=== PATIENT | male | born 1990 | race Caucasian/White ===

== ENCOUNTER 2016-08-12 07:10 | Emergency (ER) | payer OTHER ==
[~2016-08-12] VITALS: Wt 100.0 kg
[2016-08-12] MEDS ORDERED: LIDOCAINE/MYLANTA 40 ML BTL PO ONE (07:30)
[2016-08-12] MEDS ORDERED: FAMOTIDINE 20 MG TAB PO ONE (07:30)
[2016-08-12] MEDS ORDERED: ACETAMINOPHEN 500 MG TAB PO STA (07:30)
[2016-08-12] MEDS ORDERED: SOD CHLORIDE 0.9% 1,000 ML IV STA (07:32)
--- NOTE | 2016-08-12 08:06 | RADRPT ---
PROCEDURE: US Abdomen (right upper quadrant). CLINICAL INDICATION: Right upper quadrant pain TECHNIQUE: Multiple real-time longitudinal and transverse images of the right upper quadrant of th e abdomen were acquired utilizing a curved array transducer. Images were reviewed on a high-resoluti on PACS workstation. COMPARISON: None FINDINGS: The liver is normal in size and echotexture without focal mass or intrahepatic biliary dilatation. There is normal hepatopedal flow within the main portal vein. The gallbladder is well displayed wit hout filling defects or wall thickening. The common bile duct measures 5.7 mm in maximal dimension. The pancreas is not well visualized due to overlying bowel gas and body habitus. No free fluid is identified. The right kidney measures 10.3 cm in length. There is normal echogenicity within the right kidney. There is no perinephric fluid collection. No hydronephrosis, mass, or calculus is seen. IMPRESSION: 1. Unremarkable right upper quadrant ultrasound. RPTAT: [facility] Physician Madhu Date Time Electronically viewed and signed by Physician Madhu on 08/12/2016 08:06 /
--- NOTE | 2016-08-12 08:15 | ERD ---
ER Documentation Chief Complaint Date/Time DATE: 08/12/16 Chief Complaint Epigastric pain, acid reflux HPI The patient is a 26-year-old male who presents to the emergency department with complaint of epigastric abdominal pain and acid reflux. The patient reports that his symptoms began yesterday, after eating a large, heavy, spicy meal. His pain is localized to the epigastric region of his abdomen, and is described as aching and burning in nature, with associated acid reflex extending towards his esophagus. He notes that he often experiences these symptoms after eating similarly spicy meals, though has not thought to change his diet. He denies any associated nausea, vomiting, diarrhea, black/bloody stools, hematuria, dysuria, flank pain. Denies fevers, sweats, chills. Denies testicular pain, testicular swelling or urethral discharge. He rates his current pain as 7/10, but has not yet taken any medication for pain relief. Denies any radiation of pain. No other complaints at this time. ROS All systems reviewed and are negative except as per history of present illness. Medications Home Meds Active Scripts Acetaminophen* (Tylophen*) 500 Mg Capsule, 1 CAP PO Q6H Y for PAIN AND OR ELEVATED TEMP, #20 CAP Prov:MAAME GUILLEN PA-C 08/12/16 Famotidine* (Pepcid*) 20 Mg Tablet, 20 MG PO BID, #20 TAB Prov:MAAME GUILLEN PA-C 08/12/16 Allergies Allergies: Coded Allergies: No Known Drug Allergies (Verified Adverse Reaction, Unknown, 06/16/11) PMhx/Soc History of Surgery: No Anesthesia Reaction: No Hx Neurological Disorder: No Hx Respiratory Disorders: No Hx Cardiac Disorders: Yes (HX HTN) Hx Psychiatric Problems: No Hx Miscellaneous Medical Probl: No Hx Alcohol Use: Yes Hx Substance Use: Yes Hx Tobacco Use: Yes Smoking Status: Current every day smoker Physical Exam Vitals Vital Signs Date Time Temp Pulse Resp B/P Pulse Ox O2 Delivery O2 Flow Rate FiO2 08/12/16 07:16 98.0 110 20 141/93 99 Physical Exam GENERAL: Well-developed, well-nourished, in no acute distress HEENT: Head is normocephalic, atraumatic. No scleral pallor or icterus. Pupils equal, round and reactive to light. Extraocular movements intact. Conjunctiva pink. Moist mucous membranes. No pharyngeal erythema or exudates. Uvula is midline. NECK: Supple. No masses, no tenderness, no lymphadenopathy. Trachea midline. No nuchal rigidity. Full range of motion. RESPIRATORY: Lungs are clear to auscultation bilaterally. No rales, rhonchi or wheezing. Equal breath sounds. Normal expiratory effort. CARDIOVASCULAR: Regular rate and rhythm. S1 and S2 normal. No murmurs, rubs, or gallops. GASTROINTESTINAL: Abdomen is soft, nontender, and nondistended. No guarding, no rebound tenderness. Normal bowel sounds. No gross peritonitis. Negative Carrington' s sign. No tenderness at McBurney's point. FLANK: No CVA tenderness, no mass or swelling. BACK: No midline tenderness. No paraspinal tenderness. Spine curve normal. No deformities. EXTREMITIES: No clubbing, cyanosis, or edema. Normal skin perfusion. Full range of motion of both the upper and lower extremities bilaterally. Muscle tone is normal. No focal swelling or erythema. Distal pulses are palpable, 2+ bilaterally. Capillary refill is less than 2 seconds. NEUROLOGIC: The patient is alert, awake, and oriented x 3. No focal neurologic deficits. INTEGUMENT: Skin is clean, dry and intact. No rashes, lesions or petechiae present. PSYCHIATRIC: Appropriate; Cooperative. Result Diagram: 08/12/16 0810 08/12/16 0810 Results 24 hrs Laboratory Tests Test 08/12/16 08:10 White Blood Count 9.810^3/ul Red Blood Count 5.6010^6/ul Hemoglobin 16.7g/dl Hematocrit 47.9% Mean Corpuscular Volume 85.5fl Mean Corpuscular Hemoglobin 29.8pg Mean Corpuscular Hemoglobin Concent 34.9g/dl Red Cell Distribution Width 13.2% Platelet Count 88784^3/UL Mean Platelet Volume 10.1fl Neutrophils % 58.6% Lymphocytes % 29.3% Monocytes % 8.6% Eosinophils % 2.4% Basophils % 0.5% Nucleated Red Blood Cells % 0.0/100WBC Neutrophils # 5.710^3/ul Lymphocytes # 2.910^3/ul Monocytes # 0.810^3/ul Eosinophils # 0.210^3/ul Basophils # 0.110^3/ul Nucleated Red Blood Cells # 0.010^3/ul Urine Color YELLOW Urine Clarity CLEAR Urine pH 5.0 Urine Specific [place] 1.021 Urine Ketones NEGATIVEmg/dL Urine Nitrite NEGATIVEmg/dL Urine Bilirubin NEGATIVEmg/dL Urine Urobilinogen NEGATIVEmg/dL Urine Leukocyte Esterase NEGATIVELeu/ul Urine Hemoglobin NEGATIVEmg/dL Urine Glucose NEGATIVEmg/dL Urine Total Protein NEGATIVEmg/dl Sodium Level 142mmol/L Potassium Level 4.1mmol/L Chloride Level 106mmol/L Carbon Dioxide Level 24mmol/L Anion Gap 16 Blood Urea Nitrogen 14mg/dl Creatinine 0.75mg/dl Glucose Level 119mg/dl Calcium Level 9.6mg/dl Total Bilirubin 0.1mg/dl Direct Bilirubin 0.00mg/dl Indirect Bilirubin 0.1mg/dl Aspartate Amino Transf (AST/SGOT) 36IU/L Alanine Aminotransferase (ALT/SGPT) 62IU/L Alkaline Phosphatase 104IU/L Total Protein 8.4g/dl Albumin 4.9g/dl Globulin 3.50g/dl Albumin/Globulin Ratio 1.40 Lipase 117U/L Current Medications Medications (Trade) Dose Ordered Sig/Ulises Route PRN Reason Start Time Stop Time Status Last Admin Dose Admin Famotidine (Pepcid) 20 mg ONCE ONCE PO 08/12/16 07:30 08/12/16 07:33 DC 08/12/16 08:20 Miscellaneous Medication (Gi Cocktail (2)) 40 ml ONCE ONCE PO 08/12/16 07:30 08/12/16 07:33 DC 08/12/16 08:20 Acetaminophen 500 mg 500 mg ONCE STAT PO 08/12/16 07:30 08/12/16 07:33 DC 08/12/16 08:20 Sodium Chloride (NS) 1,000 ml @ 1,000 mls/hr Q1H STAT IV 08/12/16 07:32 08/12/16 08:31 DC 08/12/16 08:21 Procedures/MDM DIAGNOSTIC TESTS AND INTERPRETATION: PROCEDURE: US Abdomen (right upper quadrant). CLINICAL INDICATION: Right upper quadrant pain TECHNIQUE: Multiple real-time longitudinal and transverse images of the right upper quadrant of the abdomen were acquired utilizing a curved array transducer. Images were reviewed on a high-resolution PACS workstation. COMPARISON: None FINDINGS: The liver is normal in size and echotexture without focal mass or intrahepatic biliary dilatation. There is normal hepatopedal flow within the main portal vein. The gallbladder is well displayed without filling defects or wall thickening. The common bile duct measures 5.7 mm in maximal dimension. The pancreas is not well visualized due to overlying bowel gas and body habitus. No free fluid is identified. The right kidney measures 10.3 cm in length. There is normal echogenicity within the right kidney. There is no perinephric fluid collection. No hydronephrosis, mass, or calculus is seen. IMPRESSION: Unremarkable right upper quadrant ultrasound. Physician Madhu Date Time Electronically viewed and signed by Physician Mdahu on 08/12/2016 08: 06 EMERGENCY DEPARTMENT COURSE: The patient was stable throughout the ER course. She was give Tylenol, Pepcid and a GI cocktail. Diagnostic imaging was performed. Upon reassessment, the patient remained stable, and stated that his pain had resolved. He had no episodes of emesis or diarrhea while in the emergency department. MEDICAL DECISION MAKING: This is a 26-year-old male presenting to the Emergency Department with complaint of epigastric abdominal pain and acid reflux. The patient had no significant abnormalities noted on physical examination. Differential diagnosis includes, but is not limited to, gastroenteritis, gastritis, cholecystitis, cholangitis, choledocholithiasis, pancreatitis, perforated viscus, mesenteric ischemia, GERD, PUD, urinary tract infection, acute coronary syndrome, pyelonephritis, pneumonia, hepatitis, infectious diarrhea, IBD, aortic dissection, torsion, bowel obstruction, appendicitis, diverticulitis. No abnormalities were noted on laboratory or imaging modalities ordered. After rest and administration of fluids and medications, the patient reports no new complaints and resolved pain and symptoms. Upon review and interpretation of the patient's presentation and overall ER course, I believe the patient's symptoms are most consistent with epigastric abdominal pain and GERD. I doubt cholecystitis, no abnormalities or indication of disease process noted on ultrasound, negative Carrington's sign. Doubt acute coronary syndrome - symptoms and examination inconsistent. Doubt pancreatitis - clinical presentation inconsistent. Doubt perforated ulcer, patient has a non -surgical abdomen. Doubt small bowel obstruction, patient is passing flatus, abdomen is non-distended. Doubt appendicitis, patient has no McBurney's point tenderness, no guarding, non-surgical abdomen, no tenderness over the RLQ. Doubt diverticulitis, exam inconsistent. Doubt ischemic bowel, no pain out of proportion to examination. Doubt torsion, symptoms and examination inconsistent. At this time, the patient is in stable condition and therefore he can be discharged home with prescriptions for Pepcid and Tylenol, and strict return precautions for signs of deteriorating or worsening condition. He is advised to follow up with his primary care provider in 2-3 days for reevaluation and further management, or return to the ER sooner if symptoms worsen. I shared my medical decision making, plan, as well as the results with the patient at length and in great detail, and he verbally understands and agrees with the plan for further observation and care as an outpatient. Appropriate dietary changes discussed. At the time of discharge, all questions were answered. SMOKING CESSATION: A discussion was held by me with the patient regarding smoking cessation. The risks of continued smoking, including hypertension, cardiac, cerebrovascular, and other end organ injury were discussed. Furthermore, the risk of emphysema, cancer, chronic bronchitis, and other pulmonary complications were emphasized. The risks and benefits of medical therapy including nicotine replacement therapy were discussed. The patient is strongly encouraged to pursue a smoking cessation program. Time spent in counseling 3 minutes. Departure Diagnosis: Primary Impression: Epigastric abdominal pain Additional Impression: GERD (gastroesophageal reflux disease) Esophagitis presence: esophagitis presence not specified Qualified Code: K21.9 - Gastroesophageal reflux disease, esophagitis presence not specified Condition: Stable Patient Instructions: Epigastric Pain (Uncertain Cause), Gerd (Adult) Additional Instructions: Call your primary care doctor TOMORROW for an appointment during the next 2-3 days.See the doctor sooner or return here if your condition worsens before your appointment time. Llame al doctor MAANA y jluis isaias FLO PARA DENTRO DE 2-3 LYNN.Dgale a la secretaria que nosotros le instruimos hacer esta flo.Avise o llame si salinas condicin se empeora antes de la flo. Regresa aqui si peor o no mejor. MAAME GUILLEN PA-C Aug 12, 2016 08:15
[2016-08-12 08:25] LABS: ADD SCAN DIFF NO
[2016-08-12 08:32] LABS: BASOPHIL # 0.1 10^3/ul (0.0-0.1); BASOPHILS % 0.5 % (0.0-2.0); EOSINOPHILS # 0.2 10^3/ul (0.0-0.5); EOSINOPHILS % 2.4 % (0.0-7.0); HEMATOCRIT 47.9 % (42.0-52.0); HEMOGLOBIN 16.7 g/dl (14.0-18.0); LYMPHOCYTES # 2.9 10^3/ul (0.8-2.9); LYMPHOCYTES % 29.3 % (15.0-51.0); MEAN CORPUSCULAR HEMOGLOBIN 29.8 pg (29.0-33.0); MEAN CORPUSCULAR HGB CONC 34.9 g/dl (32.0-37.0); MEAN CORPUSCULAR VOLUME 85.5 fl (82.0-101.0); MEAN PLATELET VOLUME 10.1 fl (7.4-10.4); MONOCYTE # 0.8 10^3/ul (0.3-0.9); MONOCYTES % 8.6 % (0.0-11.0); NEUTROPHIL # 5.7 10^3/ul (1.6-7.5); NEUTROPHILS % 58.6 % (39.0-77.0); PLATELET COUNT 330 10^3/UL (140-415); RED CELL DISTRIBUTION WIDTH 13.2 % (11.5-14.5); WHITE BLOOD COUNT 9.8 10^3/ul (4.8-10.8)
[2016-08-12 08:34] LABS: ADD UMIC NO; UR ASCORBIC ACID NEGATIVE (NEGATIVE); UR BILIRUBIN (Dip) NEGATIVE (NEGATIVE); UR BLOOD (Dip) NEGATIVE (NEGATIVE); UR CLARITY CLEAR (CLEAR); UR COLOR YELLOW (YELLOW); UR GLUCOSE (Dip) NEGATIVE (NEGATIVE); UR KETONES (Dip) NEGATIVE (NEGATIVE); UR LEUKOCYTE ESTERASE (Dip) NEGATIVE Leu/ul (NEGATIVE); UR NITRITE (Dip) NEGATIVE (NEGATIVE); UR SPECIFIC GRAVITY (Dip) 1.021 (1.003-1.030); UR TOTAL PROTEIN (Dip) NEGATIVE (NEGATIVE); UR UROBILINOGEN (Dip) NEGATIVE (NEGATIVE)
[2016-08-12 08:52] LABS: ALBUMIN 4.9 g/dl (3.3-4.9); ALBUMIN/GLOBULIN RATIO 1.4; BILIRUBIN,INDIRECT 0.1 mg/dl (0-1.1); BILIRUBIN,TOTAL 0.1 mg/dl (0.2-1.3); CALCIUM 9.6 mg/dl (8.4-10.2); CREATININE 0.75 mg/dl (0.61-1.24); POTASSIUM 4.1 mmol/L (3.5-5.1); TOTAL PROTEIN 8.4 g/dl (6.1-8.1)
[2016-08-12] MEDS ORDERED: FAMO-18 PO (09:11)
[2016-08-12] MEDS ORDERED: ACET500C5 PO (09:11)
== END 2016-08-12 09:43 | disposition home or self-care (01) ==
LOC: FTE 07:10
DX: R10.13 Epigastric pain (principal); K21.9 Gastro-esophageal reflux disease without esophagitis; I10 Essential (primary) hypertension; F17.210 Nicotine dependence, cigarettes, uncomplicated
CPT/HCPCS: 36415; 76705; 80053; 81003; 83690; 85025; J7030; Z7502; Z7610

== ENCOUNTER 2016-08-20 11:23 | Emergency (ER) | payer SELFPAY ==
[~2016-08-20] VITALS: Ht 182.9 cm; Wt 146.0 kg
[~2016-08-20 11:23] MED LIST: ACET500C5 PO; FAMO-18 PO
[2016-08-20 11:27] VITALS: Ht 182.9 cm; Wt 146.0 kg
[2016-08-21] MEDS ORDERED: CYCL-319 PO (10:29)
[2016-08-21] MEDS ORDERED: IBUP-1542 PO (10:29)
== END 2016-08-20 13:34 | disposition left against medical advice (07) ==
LOC: FTE 11:23
DX: Z53.21 Procedure and treatment not carried out due to patient leaving prior to being seen by health care provider (principal)

== ENCOUNTER 2016-08-21 09:42 | Emergency (ER) | payer MEDICAID ==
[~2016-08-21] VITALS: Ht 193 cm; Wt 137.5 kg
[2016-08-21 09:58] VITALS: Ht 193 cm; Wt 137.5 kg
[2016-08-21] MEDS ORDERED: CYCL-319 PO (10:29)
[2016-08-21] MEDS ORDERED: IBUP-1542 PO (10:29)
--- NOTE | 2016-08-21 10:35 | ERD ---
ER Documentation Chief Complaint Date/Time DATE: 08/21/16 TIME: 10:30 Chief Complaint 8/10 upper back pain x 1 month HPI Patient is a 26-year-old male who presents to the emergency department with left upper back pain 1 month. Patient states pain got significantly worse 2 days ago after lifting heavy sandbags. Patient states previously he was in [facility] , patient released 1 month ago. Patient denies any saddle anesthesia, urinary incontinence, stool incontinence, fever, chills, nausea or vomiting. Patient denies any chest pain, shortness of breath, left upper extremity pain or diaphoresis. Patient denies any abdominal pain, dysuria, frequency or flank pain. Patient does report taking Advil with some alleviation of symptoms. Patient denies any recent falls or trauma. ROS All systems reviewed and are negative except as per history of present illness. Medications Home Meds Active Scripts Cyclobenzaprine Hcl* (Cyclobenzaprine Hcl*) 10 Mg Tablet, 10 MG PO TID, #15 TAB Prov:JOSE ANGEL VINES PA-C 08/21/16 Ibuprofen* (Motrin*) 600 Mg Tab, 600 MG PO Q6, #30 TAB Prov:JOSE ANGEL VINES PA-C 08/21/16 Acetaminophen* (Tylophen*) 500 Mg Capsule, 1 CAP PO Q6H Y for PAIN AND OR ELEVATED TEMP, #20 CAP Prov:MAAME GUILLEN PA-C 08/12/16 Famotidine* (Pepcid*) 20 Mg Tablet, 20 MG PO BID, #20 TAB Prov:MAAME GUILLEN PA-C 08/12/16 Allergies Allergies: Coded Allergies: No Known Drug Allergies (Verified Adverse Reaction, Unknown, 08/21/16) PMhx/Soc History of Surgery: No Anesthesia Reaction: No Hx Neurological Disorder: No Hx Respiratory Disorders: No Hx Cardiac Disorders: Yes (HX HTN) Hx Psychiatric Problems: No Hx Miscellaneous Medical Probl: No Hx Alcohol Use: Yes Hx Substance Use: Yes Hx Tobacco Use: Yes Smoking Status: Current every day smoker FmHx Family History: No diabetes Physical Exam Vitals Vital Signs Date Time Temp Pulse Resp B/P Pulse Ox O2 Delivery O2 Flow Rate FiO2 08/21/16 09:58 98.2 99 18 134/73 99 Physical Exam GENERAL: Well-developed, well-nourished male. Appears in no acute distress. Speaking in full sentences. HEAD: Normocephalic, atraumatic. EYES: Pupils are equally reactive bilaterally. EOMs grossly intact. No conjunctival erythema. ENT: Moist mucous membranes. No uvula deviation. No kissing tonsils. NECK: Supple. No meningismus. Normal range of motion of the neck. No cervical midline tenderness. LUNG: Clear to auscultation bilaterally. No rhonchi, wheezing, rales or coarse breath sounds. HEART: Regular rate and rhythm. No murmurs, rubs or gallops. ABDOMEN: Soft, nontender, and nondistended. Positive bowel sounds in all four quadrants. No rebound tenderness, no guarding. (-) McBurney's point tenderness. No CVA tenderness. BACK: No midline tenderness. Tender to palpation in left trapezius muscles. Pain is reproducible. EXTREMITIES: Equal pulses bilaterally. No peripheral clubbing, cyanosis or edema. No unilateral leg swelling. NEUROLOGIC: Alert and oriented. Moving all four extremities without any difficulty. Normal speech. Steady gait. SKIN: Normal color. Warm and dry. No rashes or lesions. Procedures/MDM MEDICAL DECISION MAKING: This is a 26-year-old male who presents with left-sided upper back pain for 1 month which recently got worse after lifting heavy sandbags 2 days ago. Patient denied any falls or trauma. Patinet denies any saddle anesthesia, urinary symptoms, flank pain, urinary incontinence, stool incontinence, night pain, fever or chills. Vital signs were reviewed. Patient was afebrile. Patient was offered imaging studies however he declined. Given these findings, the patient s presentation is most consistent with musculoskeletal back pain. I have a much lower clinical concern for cauda equine syndrome, spinal fractures, epidural abscess, spinal metastases, osteomyelitis, aortic dissection, ruptured or leaking AA, DJD, sciatica, pyelonephritis or nephrolithiasis. PRESCRIPTIONS: Ibuprofen Flexeril, Patient was given detailed instructions to not take this medication when operating any machinery or driving. DISCHARGE: At this time, patient is stable for discharge and outpatient management. RICE therapy, heating pad use and ROM exercises were advised to avoid stiffness. I have instructed the patient to follow-up with his/her primary care physician in 1-2 days. I have discussed with the patient the possibility of needing to see an orthopedic assistant for further workup and imaging if the pain persists. Referral information provided. I have instructed the patient to promptly return to the ER for any new or worsening symptoms including increased pain, swelling, warmth, urinary incontinence, stool incontinence, weakness or numbness. The patient and/or family expressed understanding of and agreement with this plan. All questions were answered. Home care instructions were provided. Departure Diagnosis: Primary Impression: Musculoskeletal back pain Condition: Stable Patient Instructions: Back Pain (Acute Or Chronic) Referrals: [facility] Additional Instructions: Call your primary care doctor TOMORROW for an appointment during the next 1-2 days.See the doctor sooner or return here if your condition worsens before your appointment time. DO NOT TAKE ANY FLEXERIL WHEN OPERATING MACHINERY AND/OR DRIVING. JOSE ANGEL VINES PA-C Aug 21, 2016 10:35
== END 2016-08-21 10:46 | disposition home or self-care (01) ==
LOC: FTE 09:42
DX: M54.6 Pain in thoracic spine (principal); I10 Essential (primary) hypertension; F17.210 Nicotine dependence, cigarettes, uncomplicated
CPT/HCPCS: 99283